=== PATIENT | female | born 1995 | race Caucasian/White ===

== ENCOUNTER 2021-02-22 08:23 | Day surgery (SDC) | payer OTHER ==
[2021-02-22] MEDS ORDERED: Sodium Chloride 0.9% 1,000 ML IV SCH (09:00)
[2021-02-22] MEDS ORDERED: Neostigmine Methylsulfate 1 MG/ML 5 ML Syringe ONE (09:25)
[2021-02-22] MEDS ORDERED: Succinylcholine 200 MG/10 ML MDV ONE (09:25)
[2021-02-22] MEDS ORDERED: Rocuronium 50 MG/5 ML Vial ONE (09:25)
[2021-02-22] MEDS ORDERED: Ondansetron 4 MG/2 ML SDV ONE (09:25)
[2021-02-22] MEDS ORDERED: Glycopyrrolate 0.2 MG/ML 5 ML MDV ONE (09:25)
[2021-02-22] MEDS ORDERED: Propofol 200 MG/20 ML SDV ONE (09:25)
[2021-02-22] MEDS ORDERED: fentaNYL 250 MCG/5 ML SDV ONE ×2 (09:25→10:29)
[2021-02-22] MEDS ORDERED: Dexamethasone 4 MG/ML SDV ONE (09:25)
[2021-02-22] MEDS ORDERED: metroNIDAZOLE/Normal Saline 500 MG in Premix Bag 1 BAG IV ONE (09:45)
[2021-02-22] MEDS ORDERED: ceFAZolin 2 GM in Premix Bag 1 BAG IV ONE (09:45)
[2021-02-22] MEDS ORDERED: hydrOXYzine HCL 100 MG/2 ML SDV IM PRN (10:22)
[2021-02-22] MEDS ORDERED: Docusate Sodium 100 MG Cap PO PRN (10:22)
[2021-02-22] MEDS ORDERED: Benzocaine/Cetylpyridinium/Menthol Lozenge MUCMEM PRN (10:22)
[2021-02-22] MEDS ORDERED: Acetaminophen/HYDROcodone 325-5 MG Tab PO PRN (10:22)
[2021-02-22] MEDS ORDERED: Zolpidem 5 MG Tab PO PRN (10:22)
[2021-02-22] MEDS ORDERED: Labetalol 20 MG/4 ML Syringe ONE (10:55)
[2021-02-22] MEDS: Lidocaine 1% with EPINEPHrine 1:100,000 50 ML MDV ONE ×2 (10:58→11:15)
[2021-02-22] MEDS: Bupivacaine 0.5% 50 ML MDV ONE ×2 (10:58→11:15)
[2021-02-22] MEDS ORDERED: fentaNYL 100 MCG/2 ML SDV ONE (11:13)
[2021-02-22] MEDS ORDERED: Lactated Ringers 1,000 ML ONE (11:25)
[2021-02-22] MEDS ORDERED: hydrOXYzine HCL 100 MG/2 ML SDV IM ONE (11:52)
--- NOTE | 2021-02-22 20:29 | OR ---
DATE OF PROCEDURE: 02/22/2021 SURGEON: Domingo Rivera MD PROCEDURES: 1. Transversus abdominis plane block bilaterally. 2. Rectus sheath blocks bilaterally. COMPLICATIONS: None. [employer]: None. RISKS: Risks, benefits, alternatives, and limitations including, but not limited to infection, bleeding, injury to abdominal structures and other risks not listed here were explained to the patient, who wished to proceed. PROCEDURE IN DETAIL: The patient was placed in supine position. The left transversus plane was identified using a 13 megahertz ultrasound probe. Due to the patient's body habitus, this was somewhat deep. 20% of the solution was injected to this location and another 20% was injected to the other side respectively. Bilateral rectus sheaths were then injected in the posterior component. 20% of solution injected into these respectively. At no point was the needle blindly advanced. At no point was the needle advanced past the peritoneum. The patient tolerated the procedure well. Domingo Rivera MD /[id number]
--- NOTE | 2021-02-23 09:23 | OR ---
DATE OF PROCEDURE: 02/22/2021 SURGEON: Domingo Rivera MD PROCEDURE: Laparoscopic cholecystectomy. PREOPERATIVE DIAGNOSES: Cholelithiasis, cholecystitis. POSTOPERATIVE DIAGNOSES: Cholelithiasis, cholecystitis. RISKS: Risks, benefits, alternatives, and limitations including, but not limited to infection, bleeding, perforation, false positives and false negatives along with cystic duct leaks, common bile duct injuries, possibility of open surgery, injury to intestines, bladder, hematoma, seroma, sepsis, and other risks not listed here were explained to the patient who wished to proceed. PROCEDURE IN DETAIL: The patient was placed in supine position. A supraumbilical curvilinear incision was made. A Veress needle was used to enter the abdomen without abnormality and a drop test was performed without abnormality. The abdomen was inspected for evidence of injury. None was noted. Additional 10 and two 5 mm ports were entered under direct visualization. The gallbladder was retracted cephalad. The infundibulum was retracted inferolaterally. Of note, this was wrapped in omentum, which was then dissected freely. Using blunt dissection, a "clear view" of the gallbladder was obtained with a single pulsatile structure entering the gallbladder and a single nonpulsatile structure entering the gallbladder. The artery and duct were then subsequently clipped and transected. The remaining one-third of the gallbladder was removed off the gallbladder bed without difficulty. The gallbladder was delivered through the superior port via a bag. The abdomen was reinsufflated and the pressure was dropped to 7. No bleeding was noted. It was irrigated with 1 L of irrigation. The wounds were closed with 3-0 Vicryl and 4-0 Vicryl in interrupted running fashion. Dermabond was applied. The patient tolerated the procedure well. Domingo Rivera MD /[id number]
== END 2021-02-22 14:40 | disposition home or self-care (01) ==
LOC: JP.SDS 08:23 → JP.MS 12:00 → JP.SDS 14:40
PROVIDERS: ATTEND Surgery
DX: K81.1 Chronic cholecystitis (principal); E66.01 Morbid (severe) obesity due to excess calories; K21.9 Gastro-esophageal reflux disease without esophagitis; Z68.43 Body mass index [BMI] 50.0-59.9, adult
CPT/HCPCS: 36415; 47562; 80053; 81025; 85027; A9270; J0171; J0330; J0690; J1100; J2405; J2704; J2710; J2795; J3010; J3410; J3490; J7030; J7120